=== PATIENT | female | born 1990 | race Caucasian/White ===

== ENCOUNTER 2018-05-03 20:53 | Emergency (ER) | payer OTHER ==
--- NOTE | 2018-05-03 21:45 | PDOC ---
Rapid Medical Evaluation Time Seen by Provider: 05/03/18 21:43 Medical Evaluation: Allergies Allergy/AdvReac Type Severity Reaction Status Date / Time codeine phosphate Allergy Swelling Verified 01/03/18 14:00 [From Codeine Phosphate Soluble] 05/03/18 21:43 I have performed a brief in-person evaluation of this patient. The patient presents with a chief complaint of:Body aches, sore throat and cough x 4 days. 6 months w/ no issues w/ w/ preg so far. No abd pain or vag bleed Pertinent physical exam findings:Stable and well devon I have ordered the following:flu swab sent The patient will proceed to the ED for further evaluation.
[2018-05-03 21:57] VITALS: BMI 45.2
[2018-05-03] MEDS ORDERED: ACETAMINOPHEN 500 MG TABLET (FP) PO ONE (22:50)
[2018-05-03] MEDS ORDERED: ACETAMINOPHEN 500 MG TABLET (FP) ONE (22:51)
--- NOTE | 2018-05-03 22:51 | PDOC ---
History of Present Illness - General Chief Complaint: Sore Throat Stated Complaint: THROAT CHILLS 6 MONTHS Time Seen by Provider: 05/03/18 21:43 - History of Present Illness Initial Comments: 05/03/18 22:48 23 week female presents for evaluation of cold-like symptoms without fever 4 days she has no comorbidities. Past History - Past Medical History Allergies/Adverse Reactions: Allergies Allergy/AdvReac Type Severity Reaction Status Date / Time codeine phosphate Allergy Swelling Verified 05/03/18 21:47 [From Codeine Phosphate Soluble] Home Medications: Ambulatory Orders NK [No Known Home Medication] 01/03/18 Anemia: No Asthma: No Cancer: No Cardiac Disorders: No CVA: No COPD: No CHF: No Dementia: No Diabetes: No GI Disorders: No Disorders: No HTN: No Hypercholesterolemia: No Liver Disease: No Seizures: No Thyroid Disease: No - Surgical History Abdominal Surgery: No Appendectomy: Yes (2006) Cardiac Surgery: No Cholecystectomy: No Lung Surgery: No Neurologic Surgery: No Orthopedic Surgery: Yes (RIGHT KNEE ARHTROSCOPY 2008) - Immunization History Immunization Up to Date: Yes - Suicide/Smoking/Psychosocial Hx Smoking Status: No Smoking History: Never smoked Have you smoked in the past 12 months: No Number of Cigarettes Smoked Daily: 0 Information on smoking cessation initiated: No Hx Alcohol Use: No Drug/Substance Use Hx: No Substance Use Type: None Hx Substance Use Treatment: No Review of Systems - Review of Systems Constitutional: No: Fever HEENTM: Yes: Nose Congestion *Physical Exam - Vital Signs Last Vital Signs Temp Pulse Resp BP Pulse Ox 99.9 F H 115 H 18 151/84 100 05/03/18 21:44 05/03/18 21:44 05/03/18 21:44 05/03/18 21:44 05/03/18 21:44 - Physical Exam Comments: 05/03/18 22:49 HEAD: NC/AT EYES: Conjuntiva clear Ears: Canals and TM's normal NOSE: No d/c THROAT: Moist mucous membrances, oral pharanx clear, uvula midline NECK: Supple without adenopathy CARDIAC: S1 S2 LUNGS: CTA Full and Equal breath sounds ABDOMEN: Soft NT ND MS: Full ROM in all joints without edema NEUROLOGIC: No gross sensory or motor deficits, NVID SKIN: Normal color and temperature no lesions or rashes Moderate Sedation - Procedure Monitoring Vital Signs: Procedure Monitoring Vital Signs Temperature 99.9 F H 05/03/18 21:44 Pulse Rate 115 H 05/03/18 21:44 Respiratory Rate 18 05/03/18 21:44 Blood Pressure 151/84 05/03/18 21:44 O2 Sat by Pulse Oximetry (%) 100 05/03/18 21:44 Medical Decision Making - Medical Decision Making 05/03/18 22:50 Patient will be sent to OB labor and delivered he for clearance *DC/Admit/Observation/Transfer Diagnosis at time of Disposition: Upper respiratory infection - Discharge Dispostion Disposition: HOME Condition at time of disposition: Stable Decision to Admit order: No - Referrals Referrals: Eamon Rebolledo [Primary Care Provider] - - Patient Instructions Printed Discharge Instructions: DI for Viral Upper Respiratory Infection -- Adult Additional Instructions: Follow-up with your ARTIST MANNEQUIN COLORING as well as her internal medicine doctor in 1-2 days for further evaluation and treatment options. The only medication he can take is Tylenol because of your . Return to the emergency room should symptoms worsen or go unresolved. - Post Discharge Activity
[2018-05-04 01:04] VITALS: BP 112/63; PULSE 101; TEMP 98.5
== END 2018-05-04 01:17 | disposition home or self-care (01) ==
LOC: JERFT 20:53 → JER 20:53
DX: O99.89 Other specified diseases and conditions complicating pregnancy, childbirth and the puerperium (principal); J06.9 Acute upper respiratory infection, unspecified; Z3A.23 23 weeks gestation of pregnancy
CPT/HCPCS: 87804; 99281-25

== ENCOUNTER 2018-08-10 11:33 | Inpatient (IN) | payer OTHER ==
--- NOTE | 2018-08-10 13:24 | HP ---
Past Medical History - Admission Chief Complaint: Leaking fluid History of Present Illness: 27 y/o female with SIUP at 37 weeks who came up for NST from [facility] office - was having BPP/monitoring due to chronic HTN/GDMA2. After ultrasound completed pt was complaining of feeling "wet." Pt evaluated using sterile speculum, + pooling and nitrizine positive on examination. Pt was prescribed insulin on Tuesday 08/08 for uncontrolled GDM, pt took her a.m. humulog today but hasn't taken any further insulin. Pt also with cHTN, preEclampsia labs have been checked several times, WNL. Pt asymptomatic from pre Eclampsia standpoint. GBS negative. HIV negative. Plan was for IOL at 38 weeks due to uncontrolled GDM, however due to PROM will start IOL. History Source: Patient, Medical Record Limitations to Obtaining History: No Limitations - Past Medical History Cardiovascular: No: HTN ...: 1 ...Para: 0 ...EDC by [facility]: 08/29/18 Infectious Disease: No: MRSA, STD's Psych: No: Bipolar, Depression - Past Surgical History Hx Myomectomy: No Hx Transabdominal Cerclage: No Additional Surgical History: appendectomy. orthopedic surgery - Smoking History Smoking history: Never smoked Have you smoked in the past 12 months: No Aproximately how many cigarettes per day: 0 - Alcohol/Substance Use Hx Alcohol Use: No History of Substance Use: reports: None - Social History Usual Living Arrangement: Yes: With Spouse History of Recent Travel: No Home Medications - Allergies Allergies/Adverse Reactions: Allergies Allergy/AdvReac Type Severity Reaction Status Date / Time codeine phosphate Allergy Swelling Verified 08/08/18 11:23 [From Codeine Phosphate Soluble] - Home Medications Home Medications: Ambulatory Orders Pnv No.95/Ferrous Fum/Folic AC [ Vitamin Tablet] 1 tab PO DAILY Physical Exam - Maternity Constitutional: Yes: Well Nourished, No Distress, Calm Eyes: Yes: Conjunctiva Clear, EOM Intact HENT: Yes: Atraumatic, Normocephalic Neck: Yes: Trachea Midline Cardiovascular: Yes: Regular Rate and Rhythm Lungs: Clear to auscultation - Abdominal Exam/OB Number of Fetuses: Single Presentation: Vertex Contractions: No Heart Rate (range): 155-160 Category: I Accelerations: Uniform Decelerations: None - Vaginal Exam/OB Speculum Exam: Yes (+pooling, + nitrizine) Dilatation (cm): 0 Effacement (%): 0 Amniotic Membrane Status: Ruptured Nitrazine Test: Positive Amniotic Fluid: Yes: Clear Presentation: Vertex/Position Station: -3 - Physical Exam Psychiatric: Yes: Alert, Oriented Hemorrhage Risk Assessment - Risk Factors Medium Risk Factors: Yes: None High Risk Factors: Yes: None Risk Score: 1 Risk Level: Medium Risk Imaging - Results Ultrasound: Report Reviewed Problem List - Problems (1) Term Code(s): Z34.90 - ENCNTR FOR SUPRVSN OF NORMAL , UNSP, UNSP TRIMESTER (2) Gestational diabetes mellitus (GDM) Code(s): O24.419 - GESTATIONAL DIABETES MELLITUS IN , UNSP CONTROL Qualifiers: Gestational diabetes mellitus control: insulin-controlled Trimester: third trimester Qualified Code(s): O24.414 - Gestational diabetes mellitus in , insulin controlled (3) Chronic hypertension affecting Code(s): O10.919 - UNSP PRE-EXISTING HTN COMP , UNSP TRIMESTER (4) Obesity affecting in third trimester Code(s): O99.213 - OBESITY COMPLICATING , THIRD TRIMESTER Assessment/Plan 27 y/o with SIUP at 37 weeks here with PROM, chronic HTN (BP currently controlled) and A2GDM here for cervidil IOL AFVSS NST reactive for cervidil BGMs Q2 hours will treat if BG > 120 GBS negative
[2018-08-10] MEDS ORDERED: PROMETHAZINE HCL 25 MG/1 ML VIAL IVPUSH ONE (13:37)
[2018-08-10] MEDS ORDERED: DINOPROSTONE 10 MG VAGINAL SUPPOSITORY VG ONE (13:43)
[2018-08-10] MEDS: LACTATED RINGERS SOLUTION 1,000 ML/1,000 ML INFUS.BAG IV SCH ×2 (14:30→18:36)
[2018-08-10 15:08] LABS: BASO % 0.4 % (0-2.0); EOS % 1.8 % (0-4.5); HEMOGLOBIN 12.5 GM/dL (10.7-15.3); LYMPH % 22.9 % (8-40); MCH 28.6 pg (25.7-33.7); MEAN CELL VOLUME 86.7 fl (80-96); MEAN PLT VOLUME 10.5 fl (7.5-11.1); MONO % 6.2 % (3.8-10.2); NEUT % 68.7 % (42.8-82.8); PLATELET COUNT 198 K/MM3 (134-434); RBC 4.38 M/mm3 (3.60-5.2); RDW 14.2 % (11.6-15.6); WHITE BLOOD COUNT 10.8 K/mm3 (4.0-10.0)
[2018-08-10 15:09] LABS: RETICULOCYTES 1.59 % (0.5-1.5)
[2018-08-10 15:11] LABS: CALCIUM 8.9 mg/dL (8.5-10.1); CREATININE 0.4 mg/dL (0.55-1.3); POTASSIUM 3.9 mmol/L (3.5-5.1); URIC ACID 5.6 mg/dL (2.6-7.2)
[2018-08-10 15:16] VITALS: BMI 50.9
[2018-08-10 15:21] LABS: INR 0.94 (0.83-1.09); PROTHROMBIN TIME (PATIENT) 11.1 SEC (9.7-13.0)
[2018-08-10 15:24] LABS: ACTIVATED PTT 29.7 SECONDS (25.2-36.5)
[2018-08-10 15:44] LABS: GAMMA GLUTAMYL TRANSPEPTIDASE 42 U/L (5-85); SGOT/AST 29 U/L (15-37); SGPT/ALT 36 U/L (13-61)
[2018-08-10 17:59] LABS: EPI CELLS 6.2 /HPF (0-5/HPF); HYALINE CASTS 7 /lpf (0-8); PH,URINE 5.5 (5.0-8.0); URINE APPEARANCE CLEAR; URINE BACTERIA 24.6 /hpf (NEGATIVE); URINE BILIRUBIN NEGATIVE (NEGATIVE); URINE COLOR YELLOW; URINE GLUCOSE (UA) NEGATIVE (NEGATIVE); URINE KETONE TRACE (NEGATIVE); URINE LEUK ESTERASE TRACE (NEGATIVE); URINE NITRITE NEGATIVE (NEGATIVE); URINE PROTEIN NEGATIVE (NEGATIVE); URINE RBC 2 /hpf (0-4); URINE WBC 2 /hpf (0-5)
[2018-08-10] MEDS ORDERED: ACETAMINOPHEN 325 MG TABLET (FP) ONE ×2 (19:39→22:10)
[2018-08-10] MEDS ORDERED: ACETAMINOPHEN 325 MG TABLET (FP) PO ONE (20:00)
[2018-08-10] MEDS ORDERED: BUTORPHANOL TARTRATE 1 MG/ML VIAL IVPB ONE (20:00)
[2018-08-10] MEDS ORDERED: TUBERCULIN PPD 5 TU/0.1ML SYRINGE (IN PATIENT USE ONLY) ID ONE (22:00)
[2018-08-10] MEDS: ACETAMINOPHEN 325 MG TABLET (FP) PO PRN (22:15)
[2018-08-10] MEDS ORDERED: PROMETHAZINE HCL 25 MG/1 ML VIAL ONE (23:05)
[2018-08-10] MEDS ORDERED: BUTORPHANOL TARTRATE 2 MG/ML VIAL ONE (23:05)
[2018-08-11] MEDS ORDERED: ACETAMINOPHEN 325 MG TABLET (FP) ONE (01:56)
[2018-08-11] MEDS: LACTATED RINGERS SOLUTION 1,000 ML/1,000 ML INFUS.BAG IV SCH ×2 (02:00→19:05)
[2018-08-11] MEDS: ACETAMINOPHEN 325 MG TABLET (FP) PO PRN (02:00)
[2018-08-11] MEDS ORDERED: TUBERCULIN PPD 5 TU/0.1ML SYRINGE (IN PATIENT USE ONLY) ID ONE (05:00)
[2018-08-11] MEDS ORDERED: AMPICILLIN SODIUM 2 GM VIAL ONE (05:41)
[2018-08-11] MEDS ORDERED: AMPICILLIN - 2 GM in SODIUM CHLORIDE 100 ML IVPB ONE (06:15)
[2018-08-11] MEDS ORDERED: OXYTOCIN 30 UNITS in 0.9% NS 30 UNIT/500 ML INFUS.BAG IVPB ONE (09:10)
--- NOTE | 2018-08-11 09:17 | PN ---
Ante-Partal Exam - Subjective Subjective: Pt feeling occasional cramps. Had pain overnight, received stadol/phenergan. Cervidil removed around 1230/1am. Vital Signs: Vital Signs Temperature 98.2 F 08/11/18 08:00 Pulse Rate 96 H 08/11/18 08:00 Respiratory Rate 20 08/11/18 08:00 Blood Pressure 109/74 08/11/18 08:00 O2 Sat by Pulse Oximetry (%) Bleeding: No Headache: No Visual changes: No Right upper quadrant pain: No - Contractions Contractions: Yes Regularity: Irregular Intensity: Mild - Exam during Labor Heart Rate: 155 Variability: Moderate Category: I Monitor Accelerations: Present Monitor Decelerations: None Exam: Vaginal Dilatation (cm): 1-2 Effacement (%): 0 Amniotic Membrane Status: Ruptured Presentation: Vertex Station: -3 - Assessment/Plan Assessment/Plan: Discussed options with pt declines another cervidil will start pitocin keep NPO
[2018-08-11] MEDS ORDERED: BUTORPHANOL TARTRATE 1 MG/ML VIAL IVPB ONE (09:25)
[2018-08-11] MEDS ORDERED: PROMETHAZINE HCL 25 MG/1 ML VIAL IVPUSH ONE (09:25)
[2018-08-11] MEDS ORDERED: OXYTOCIN 30 UNITS in 0.9% NS 30 UNIT/500 ML INFUS.BAG IVPB SCH (09:30)
[2018-08-11] MEDS ORDERED: AMPICILLIN SODIUM 1 GM VIAL ONE ×2 (09:42→12:07)
[2018-08-11] MEDS: AMPICILLIN - 1 GM in SODIUM CHLORIDE 100 ML IVPB SCH ×3 (10:00→19:05)
[2018-08-11] MEDS ORDERED: CITRIC ACID/SODIUM CITRATE 30 ML UNIT-DOSE CUP PO ONE (12:24)
--- NOTE | 2018-08-11 12:24 | PN ---
Ante-Partal Exam - Subjective Subjective: Pt with tachycardia Vital Signs: Vital Signs Temperature 98.6 F 08/11/18 09:00 Pulse Rate 88 08/11/18 10:00 Respiratory Rate 20 08/11/18 10:00 Blood Pressure 136/72 08/11/18 10:00 O2 Sat by Pulse Oximetry (%) Bleeding: No Headache: No Visual changes: No Right upper quadrant pain: No - Contractions Contractions: No Regularity: Irregular Monitor Mode: External - Exam during Labor Heart Rate: 160 Variability: Moderate Heart Rate Location: [facility] Category: II Monitor Accelerations: Present Monitor Decelerations: None Exam: Vaginal Dilatation (cm): 1 Effacement (%): 70 Amniotic Membrane Status: Intact Amniotic Fluid: Clear Presentation: Vertex Station: -3 - Intrapartum Hemorrhage Risk Risk Score: 1 Risk Level: Medium Risk - Assessment/Plan Assessment/Plan: intolerance to labor Prom at 37 weeks preexisting HTN GDMA2 remote from delivery Case discussed with patient and discussed with DC pitocin Plan Section Notify peds and anesthesia
[2018-08-11] MEDS ORDERED: morphine SULFATE/Preservative Free 0.5 MG/ML (1cc Syringe) ONE (14:09)
[2018-08-11] MEDS ORDERED: PROPOFOL 20 ML ONE (14:10)
[2018-08-11] MEDS ORDERED: OXYTOCIN 20 UNITS in 0.9% NS 20 UNIT/1,000 ML INFUS.BAG IV ONE (14:10)
[2018-08-11] MEDS ORDERED: SUCCINYLCHOLINE CHLORIDE 200 MG/10 ML VIAL ONE (14:10)
[2018-08-11] MEDS ORDERED: ePHEDrine SULFATE 50 MG/1 ML AMPULE ONE (14:12)
[2018-08-11] MEDS ORDERED: ceFAZolin SODIUM 1 GM VIAL ONE (15:01)
[2018-08-11] MEDS ORDERED: OXYTOCIN 10 UNITS/ML VIAL ONE (15:01)
[2018-08-11] MEDS ORDERED: ONDANSETRON 4 MG/2 ML VIAL IVPUSH PRN (15:32)
--- NOTE | 2018-08-11 15:32 | OP ---
Operative Note - Note: Operative Date: 08/11/18 Pre-Operative Diagnosis: intolence to labor. IUP at 37 week. PROM. Obesity. Gest DM A2. preexisting HTN Operation: primary low transverse Section Findings: Live female Post-Operative Diagnosis: Same as Pre-op Surgeon: Paty Washington Cable Splicer Helper: Vasyl Boggs Anesthesiologist/YARD GOODS SALESPERSON: Aislinn Sanon MD Anesthesia: Spinal Estimated Blood Loss (mls): 700 Operative Report Dictated: Yes
[2018-08-11] MEDS ORDERED: morphine SULFATE/Preservative Free 0.5 MG/ML (1cc Syringe) EP ONE (15:33)
[2018-08-11] MEDS ORDERED: LACTATED RINGERS SOLUTION 1,000 ML IV SCH (15:45)
[2018-08-11 16:10] LABS: VENOUS PC02 67.4 mmHg (41-51)
[2018-08-11 16:12] LABS: VENOUS PO2 18.1 mmHg (30-40)
[2018-08-11 16:14] LABS: VENOUS PH 7.11 (7.31-7.41)
--- NOTE | 2018-08-11 16:37 | SURG ---
Surgery Process Control Tech Note Process Control Tech: Vasyl Boggs PA-C (Suzy) Date of Service: 08/11/18 Diagnosis: intolence to labor. IUP at 37 week. PROM. Obesity. Gest DM A2. preexisting HTN Procedure: primary low transverse Section I was present for the entirety of the operative procedure. For further detail, please refer to operative report. Visit type - Case Type Case Type: ED Admission - Emergency Emergency Visit: Yes ED Registration Date: 08/10/18 Care time: The patient presented to the Emergency Department on the above date and was hospitalized for further evaluation of their emergent condition. - New patient This patient is new to me today: No - Critical Care Critical Care patient: No
[2018-08-11] MEDS: OXYTOCIN 20 UNITS in 0.9% NS 20 UNIT/1,000 ML INFUS.BAG IV SCH (17:15)
[2018-08-11] MEDS ORDERED: IBUPROFEN 800 MG/8 ML IJ IVPB PRN (21:07)
[2018-08-12] MEDS: OXYTOCIN 20 UNITS in 0.9% NS 20 UNIT/1,000 ML INFUS.BAG IV SCH ×2 (02:11→10:48)
[2018-08-12] MEDS: ACETAMINOPHEN 325 MG TABLET (FP) PO PRN ×4 (06:12→22:25)
[2018-08-12] MEDS: IBUPROFEN 600 MG TABLET (FP) PO PRN ×4 (06:13→22:26)
--- NOTE | 2018-08-12 08:41 | OP ---
DATE OF OPERATION: 08/11/2018 PREOPERATIVE DIAGNOSIS: intolerance to labor, also obesity in the 3rd trimester, pre-existing hypertension, gestational diabetes in , intrauterine at 37 weeks, and premature rupture of membranes. DESCRIPTION OF PROCEDURE: Patient was taken to the operating room, placed in supine position, prepped and draped in the usual sterile fashion. Time-out was performed in accordance with hospital regulation. Pfannenstiel skin incision was made with a scalpel. Cautery was then used to cut through the layers of abdominal wall to the level of the fascia. Fascia was cut in the midline, and cautery was then used to open the fascia in smiling fashion. Kochers were then used to bluntly and sharply dissect the rectus muscle off the fascia. Muscle was split in the midline. Peritoneal cavity was then entered, carried up and downward. Bladder retractor was then placed. Vesicouterine reflection was then entered. The bladder was bluntly dissected out of the operative field. Scalpel was then used to make a low transverse uterine incision. Incision was carried upward using bandage scissors. A live female infant was delivered in OT position. Nose and mouth suction performed. Shoulders were delivered without difficulty. Cord was clamped and cut. Cord blood obtained. Placenta was manually extracted from the uterus. Cord pH obtained. Infant was handed to analog ic design engineer after cord was clamped and cut. Uterus was exteriorized and cleaned with clean lap pads. Uterine incision then closed using 0 Biosyn suture 1st layer continuous and locking, 2nd layer imbricating the 1st layer. Hemostasis was achieved. Tubes and ovaries were noted to be normal. Uterus interiorized. Abdominal cavity cleaned with clean lap pads. Abdominal sweep done. Peritoneal cavity was then closed using 0 Vicryl in continuous fashion. Fascia was then closed in 2 parts using 0 Vicryl in continuous fashion. Subcutaneous was closed in layers using 0 Biosyn suture in 2 layers. The skin was then closed using 3-0 Vicryl in subcuticular fashion. Wound was washed and dressed. The patient tolerated procedure well. Estimated blood loss: 700 mL. Kee [id number]
[2018-08-12] MEDS: PRENATAL VITAMINS W/ FOLIC ACID TABLET (FP) PO SCH (09:44)
--- NOTE | 2018-08-12 11:01 | PN ---
Post Note - Post Date of Delivery: 08/11/18 Vital Signs: Vital Signs - 24 hr 08/11/18 08/11/18 08/11/18 12:00 13:00 14:00 Temperature 98.6 F 98.6 F Pulse Rate 86 88 87 Respiratory 20 20 20 Rate Blood Pressure 126/78 129/67 132/76 O2 Sat by Pulse Oximetry (%) 08/11/18 08/11/18 08/11/18 14:06 15:30 15:45 Temperature 98.4 F 98.2 F Pulse Rate 87 90 Respiratory 16 16 Rate Blood Pressure 130/70 118/76 O2 Sat by Pulse 100 100 Oximetry (%) 08/11/18 08/11/18 08/11/18 16:00 16:15 16:30 Temperature Pulse Rate 77 84 84 Respiratory 16 16 16 Rate Blood Pressure 121/71 119/67 120/68 O2 Sat by Pulse 98 98 100 Oximetry (%) 08/11/18 08/11/18 08/11/18 17:15 18:00 19:00 Temperature 99 F Pulse Rate 93 H Respiratory 18 18 18 Rate Blood Pressure 134/77 O2 Sat by Pulse Oximetry (%) 08/11/18 08/11/18 08/11/18 20:00 21:00 22:00 Temperature 98.8 F Pulse Rate 95 H Respiratory 18 18 18 Rate Blood Pressure 127/83 O2 Sat by Pulse Oximetry (%) 08/11/18 08/12/18 08/12/18 23:00 00:00 01:00 Temperature Pulse Rate Respiratory 18 18 18 Rate Blood Pressure O2 Sat by Pulse Oximetry (%) 08/12/18 08/12/18 08/12/18 02:00 03:00 04:00 Temperature 98.4 F Pulse Rate 82 Respiratory 18 18 18 Rate Blood Pressure 113/63 O2 Sat by Pulse Oximetry (%) 08/12/18 08/12/18 08/12/18 05:00 06:00 08:59 Temperature 98.6 F 98.3 F Pulse Rate 87 85 Respiratory 18 18 20 Rate Blood Pressure 115/62 134/74 O2 Sat by Pulse Oximetry (%) Labs: Laboratory Results - last 24 hr 08/11/18 08/11/18 08/11/18 12:24 15:00 15:00 Anticoagulation Therapy Cancelled Puncture Site Cancelled Patient Temperature Cancelled ABG pH Cancelled ABG pCO2 at Pt Temp Cancelled ABG pO2 at Pt Temp Cancelled ABG HCO3 Cancelled ABG O2 Sat (Measured) Cancelled ABG O2 Content Cancelled ABG Base Excess Cancelled Mason Test Cancelled VBG pH 7.11 L* POC VBG pCO2 67.4 H POC VBG pO2 18.1 L VBG HCO3 20.4 L VBG O2 Sat (Micah) 19.6 L VBG Base Excess -10.8 L O2 Delivery Device Cancelled Oxygen Flow Rate Cancelled Vent Mode Cancelled Vent Rate Cancelled Mechanical Rate Cancelled PEEP Cancelled Pressure Support Vent Cancelled POC Glucometer 91 08/11/18 08/12/18 08/12/18 17:55 06:17 09:46 Anticoagulation Therapy Puncture Site Patient Temperature ABG pH ABG pCO2 at Pt Temp ABG pO2 at Pt Temp ABG HCO3 ABG O2 Sat (Measured) ABG O2 Content ABG Base Excess Mason Test VBG pH POC VBG pCO2 POC VBG pO2 VBG HCO3 VBG O2 Sat (Micah) VBG Base Excess O2 Delivery Device Oxygen Flow Rate Vent Mode Vent Rate Mechanical Rate PEEP Pressure Support Vent POC Glucometer 86 70 77 - Subjective Subjective: No Complaints, No Nausea or vomiting - Objective Afebrile: Yes Breast: Not engorged Abdomen: Soft, Non-tender Uterus: Fundus firm Vagina: Scant lochia Extremities: Non-tender - Assessment/Plan (1) History of low transverse section Assessment: Other (POD1) Plan: Routine Care
[2018-08-12] MEDS: diphenhydrAMINE HCL 25 MG CAPSULE (FP) PO PRN (22:27)
--- NOTE | 2018-08-13 06:33 | PN ---
Progress Note (SOAP) - Subjective Chief Complaint: Pt doing well - Current Medications Current Medications: Active Medications Acetaminophen (Tylenol -) 650 mg PO Q4H PRN PRN Reason: PAIN Last Admin: 08/12/18 22:25 Dose: 650 mg Diphenhydramine HCl (Benadryl Injection -) 25 mg IVPUSH Q4H PRN PRN Reason: Pruritis Last Admin: 08/12/18 13:49 Dose: 25 mg Diphenhydramine HCl (Benadryl -) 25 mg PO Q6H PRN PRN Reason: ITCHING Last Admin: 08/12/18 22:27 Dose: 25 mg Ibuprofen (Motrin -) 600 mg PO Q4H PRN PRN Reason: PAIN LEVEL 4 - 6 Last Admin: 08/12/18 22:26 Dose: 600 mg Ibuprofen (Caldolor Injection -) 600 mg IVPB Q8H PRN PRN Reason: FEVER Last Admin: 08/11/18 22:15 Dose: 600 mg Ondansetron HCl (Zofran Injection) 4 mg IVPUSH Q6H PRN PRN Reason: NAUSEA AND/OR VOMITING Multivit/Folic Acid/Iron ( Vitamins (Sjr) -) 1 tab PO DAILY TEDDY Last Admin: 08/12/18 09:44 Dose: 1 tab - Objective Vital Signs: Vital Signs Temperature 98.2 F 08/13/18 06:00 Pulse Rate 80 08/13/18 06:00 Respiratory Rate 18 08/13/18 06:00 Blood Pressure 128/72 08/13/18 06:00 O2 Sat by Pulse Oximetry (%) 100 08/12/18 09:00 Constitutional: Yes: Well Nourished, No Distress Gastrointestinal: Yes: WNL ....Post : Yes: Uterus firm, Uterus non-tender Breast(s): Yes: WNL Musculoskeletal: Yes: WNL Edema: Yes Edema: LLE: 1+, RLE: 1+ Wound/Incision: Yes: Clean/Dry, Well Approximated, Steri Strips Labs Lab Results: CBC, BMP 08/10/18 14:25 08/10/18 14:25 Problem List - Problems (1) History of low transverse section Code(s): Z98.891 - HISTORY OF UTERINE SCAR FROM PREVIOUS SURGERY (2) Obesity complicating in third trimester Code(s): O99.213 - OBESITY COMPLICATING , THIRD TRIMESTER (3) Obesity Code(s): E66.9 - OBESITY, UNSPECIFIED Assessment/Plan POD 2 obesity Plan OOB continue present management
[2018-08-13] MEDS: ACETAMINOPHEN 325 MG TABLET (FP) PO PRN ×4 (06:35→21:50)
[2018-08-13] MEDS: IBUPROFEN 600 MG TABLET (FP) PO PRN ×4 (06:36→21:51)
[2018-08-13] MEDS: PRENATAL VITAMINS W/ FOLIC ACID TABLET (FP) PO SCH (09:09)
[2018-08-13] MEDS: diphenhydrAMINE HCL 25 MG CAPSULE (FP) PO PRN ×2 (09:09→21:57)
[2018-08-14] MEDS: ACETAMINOPHEN 325 MG TABLET (FP) PO PRN ×4 (06:04→21:49)
[2018-08-14] MEDS: IBUPROFEN 600 MG TABLET (FP) PO PRN ×4 (06:05→21:49)
--- NOTE | 2018-08-14 08:06 | PN ---
Progress Note (SOAP) - Current Medications Current Medications: Active Medications Acetaminophen (Tylenol -) 650 mg PO Q4H PRN PRN Reason: PAIN Last Admin: 08/14/18 06:04 Dose: 650 mg Diphenhydramine HCl (Benadryl Injection -) 25 mg IVPUSH Q4H PRN PRN Reason: Pruritis Last Admin: 08/12/18 13:49 Dose: 25 mg Diphenhydramine HCl (Benadryl -) 25 mg PO Q6H PRN PRN Reason: ITCHING Last Admin: 08/13/18 21:57 Dose: 25 mg Ibuprofen (Motrin -) 600 mg PO Q4H PRN PRN Reason: PAIN LEVEL 4 - 6 Last Admin: 08/14/18 06:05 Dose: 600 mg Ibuprofen (Caldolor Injection -) 600 mg IVPB Q8H PRN PRN Reason: FEVER Last Admin: 08/11/18 22:15 Dose: 600 mg Ondansetron HCl (Zofran Injection) 4 mg IVPUSH Q6H PRN PRN Reason: NAUSEA AND/OR VOMITING Multivit/Folic Acid/Iron ( Vitamins (Sjr) -) 1 tab PO DAILY TEDDY Last Admin: 08/13/18 09:09 Dose: 1 tab - Objective Vital Signs: Vital Signs Temperature 98.2 F 08/13/18 22:00 Pulse Rate 91 H 08/13/18 22:00 Respiratory Rate 18 08/13/18 22:00 Blood Pressure 140/81 08/13/18 22:00 O2 Sat by Pulse Oximetry (%) 100 08/12/18 09:00 Constitutional: Yes: Well Nourished Cardiovascular: Yes: WNL Respiratory: Yes: WNL Gastrointestinal: Yes: WNL ....Post : Yes: Uterus firm, Uterus non-tender Breast(s): Yes: WNL Musculoskeletal: Yes: WNL Extremities: Yes: WNL Wound/Incision: Yes: Clean/Dry, Well Approximated, Steri Strips, Open to air Neurological: Yes: WNL, Alert, Oriented Labs Lab Results: CBC, BMP 08/10/18 14:25 08/10/18 14:25 Problem List - Problems (1) History of low transverse section Code(s): Z98.891 - HISTORY OF UTERINE SCAR FROM PREVIOUS SURGERY (2) Obesity complicating in third trimester Code(s): O99.213 - OBESITY COMPLICATING , THIRD TRIMESTER (3) Obesity Code(s): E66.9 - OBESITY, UNSPECIFIED Assessment/Plan POD 3 obesity Plan OOB continue present management
[2018-08-14] MEDS: PRENATAL VITAMINS W/ FOLIC ACID TABLET (FP) PO SCH (09:57)
[2018-08-14] MEDS: diphenhydrAMINE HCL 25 MG CAPSULE (FP) PO PRN (21:50)
[2018-08-15] MEDS: ACETAMINOPHEN 325 MG TABLET (FP) PO PRN ×2 (06:55→11:52)
[2018-08-15] MEDS: IBUPROFEN 600 MG TABLET (FP) PO PRN ×2 (06:56→11:51)
[2018-08-15 08:24] VITALS: BP 138/91; PULSE 78; TEMP 97.9
[2018-08-15 12:36] LABS: BASO % 1.2 % (0-2.0); EOS % 5.4 % (0-4.5); HEMATOCRIT 30.6 % (32.4-45.2); HEMOGLOBIN 10.2 GM/dL (10.7-15.3); LYMPH % 30.6 % (8-40); MCH 28.8 pg (25.7-33.7); MCHC 33.3 g/dl (32.0-36.0); MEAN CELL VOLUME 86.6 fl (80-96); MEAN PLT VOLUME 9.4 fl (7.5-11.1); MONO % 5.1 % (3.8-10.2); NEUT % 57.7 % (42.8-82.8); PLATELET COUNT 245 K/MM3 (134-434); RBC 3.54 M/mm3 (3.60-5.2); RDW 14.4 % (11.6-15.6); WHITE BLOOD COUNT 10.5 K/mm3 (4.0-10.0)
--- NOTE | 2018-08-15 13:06 | DS ---
Physical Exam-HEALTH SYSTEMS ANALYST Vital Signs: Vital Signs Temperature 97.9 F 08/15/18 08:00 Pulse Rate 78 08/15/18 08:00 Respiratory Rate 20 08/15/18 08:00 Blood Pressure 138/91 08/15/18 08:00 O2 Sat by Pulse Oximetry (%) 100 08/12/18 09:00 Labs: CBC, BMP 08/15/18 12:20 08/10/18 14:25 Delivery - Delivery Type of Anesthesia: Spinal Episiotomy/Laceration: None EBL (cc): 600 Delivery, Single - Stages of Labor Date 1st Stage Initiatied: 08/10/18 Time 1st Stage Initiated: 23:00 Date of Delivery: 08/11/18 Time of Delivery: 14:47 Time Placenta Delivered: 14:48 - Condition of Metal Bonding Assembler/Systems Architecture Analyst Present: Yes Name: Mae Heart Gender: Female Weight: 8 lb 4 oz Position: OT Total Hours ROM (Hrs/Mins): 26HRS-12 MINS - 1 Minute Total Score: 8 5 Minutes Total Score: 9 - Peyton Feeding Plan Initial Plan: Elected not to breastfeed exclusively throughout hospitalization Discharge Summary Reason For Visit: INDUCTION OF LABOR Current Active Problems Chronic hypertension affecting (Acute) Gestational diabetes mellitus (GDM) (Acute) History of low transverse section (Acute) Obesity (Acute) Obesity affecting in third trimester (Acute) Obesity complicating in third trimester (Acute) Term (Acute) Hospital Course: Pt admitted on 08/10 for IOL 2/2 PROM, GDM and chronic HTN. Had cervidil placed on 08/10, pitocin started 08/11 but then there was subsequent tachycardia. THe patient then underwent a primary LTCS and had an uncomplicated post recovery. She was discharged home on post op day 4. Condition: Good - Instructions Diet, Activity, Other Instructions: Physical activity Resume your normal everyday activity as tolerated no heavy lifting or exercise until seen by your surgeon. You may walk unlimited erum of and climb stairs. You may resume driving the car when you feel safe and comfortable behind the wheel. No sexual activity as instructed. Wound care If you have a bandage, leave it on, and keep dry for 48-72 hours. After that time discard the outer bandage. If they are tapes on the skin under the out of bandage leave them in place. They will peel off in the next 7 to 10 days. Do Not Peel them off. You may shower the day after surgery. If there are tapes present on the skin, you may shower over them. Diet There are no dietary restrictions. Eat healthy, high-fiber foods. Drink 6 to 8 glasses of liquid each day. This will assist in keeping your bowels are regular. Pain management You may take Tylenol or acetaminophen or Ibuprofen (for example, Motrin, Advil etc.) from my pain prescription medication is ordered should be taken as prescribed for moderate to severe pain. Call MD for any of the following: Severe pain not relieved by medication Fever of 101 or higher Excessive bleeding or drainage on dressing Inability to urinate Referrals: Leslee Hsu DO [Staff Physician] - Disposition: HOME - Home Medications Comprehensive Discharge Medication List: Ambulatory Orders Pnv No.95/Ferrous Fum/Folic AC [ Vitamin Tablet] 1 tab PO DAILY Insulin Lispro [Humalog] 44 unit SQ ONCE 08/10/18 Ibuprofen [Motrin -] 600 mg PO QID #28 tablet 08/11/18
[2018-08-15] MEDS: PRENATAL VITAMINS W/ FOLIC ACID TABLET (FP) PO SCH (13:31)
--- NOTE | 2018-08-17 15:18 | PATH ---
Surgical Pathology Report Patient Name: JANELL LUI Med. Rec. #: [id number] /Age/Gender: 1990 (Age: 27) / F Account: [id number] Location: [facility] OBS/CONSUMER SAFETY OFFICER Taken: 08/10/2018 Received: 08/14/2018 Reported: 08/17/2018 Physicians: Kee Jay M.D. Specimen(s) Received PLACENTA Clinical History 37.6 weeks gestation, PROM, obesity, gestational diabetes on insulin Primary Final Diagnosis PLACENTA, PRIMARY : MATURE THIRD TRIMESTER PLACENTA (WEIGHT: 736 GRAMS) SHOWING SMALL PLACENTAL INFARCT (1.6 CM). MILD ACUTE CHORIOAMNIONITIS. TRIVESSEL UMBILICAL CORD. Electronically Signed Rosemary Garcia M.D. Gross Description The specimen is received fresh labeled placenta and is a 736 gram 21 x 17.5 x 3.5 cm. placenta with attached membranes and umbilical cord. The attached membranes appear translucent and inserted marginally. The umbilical cord is separate from the placental disc and measures 35 cm. in length and averages 1.5 cm. in diameter. No true knots or strictures are identified. Cut surface of the umbilical cord reveals 3 vessels. The surface is alexander-blue with minimal fibrin deposition and appropriate caliber vessels. The maternal surface is red-brown and appears disrupted with focal defects. Sectioning reveals red-brown, spongy parenchyma with a focal area of white, fibrosis measuring 1.6 x 1.0 x 0.5 cm. Sewage Reticulation Drafting Officer sections are submitted in three cassettes as follows: 1- membrane rolls and umbilical cord; 2-3- placental disc with fibrous area in #2. AE/08/14/2018 ebram/08/14/2018
== END 2018-08-15 13:30 | disposition home or self-care (01) | DRG 540 ==
LOC: JDEL 11:33 → JLDR 13:15 → J3W 08-11 17:15
PROVIDERS: ADMIT Obstetrics & Gynecology; ATTEND Obstetrics & Gynecology
PROC: 3E0P7VZ Introduction of Hormone into Female Reproductive, Via Natural or Artificial Opening (ICD-10-PCS; 2018-08-10)
PROC: 10D00Z1 Extraction of Products of Conception, Low, Open Approach (ICD-10-PCS; principal; 2018-08-11)
DX: O24.424 Gestational diabetes mellitus in childbirth, insulin controlled (principal); O16.4 Unspecified maternal hypertension, complicating childbirth; O42.92 Full-term premature rupture of membranes, unspecified as to length of time between rupture and onset of labor; O77.8 Labor and delivery complicated by other evidence of fetal stress; O99.213 Obesity complicating pregnancy, third trimester; Z3A.37 37 weeks gestation of pregnancy; Z37.0 Single live birth
CPT/HCPCS: 36415; 80048; 81003; 82803; 82962; 82977; 83010; 84450; 84460; 84550; 85025; 85032; 85044; 85610; 85730; 86593; 86850; 86900; 86901; 88307-TC; 94010

== ENCOUNTER 2021-03-25 11:11 | Emergency (ER) | payer OTHER ==
[2021-03-25 13:15] VITALS: BP 138/84; PULSE 111; TEMP 98; BMI 46.5
[2021-03-25] MEDS ORDERED: ACETAMINOPHEN 1000 MG/100 ML BAG IVPB ONE (14:05)
[2021-03-25] MEDS ORDERED: ONDANSETRON 4 MG/2 ML VIAL IVPUSH ONE (14:05)
[2021-03-25] MEDS ORDERED: SODIUM CHLORIDE 0.9% 500 ML INFUS.BAG IV ONE (14:05)
[2021-03-25] MEDS ORDERED: ACETAMINOPHEN INJECTION 100 ML IVPB ONE (14:17)
[2021-03-25] MEDS ORDERED: ONDANSETRON 4 MG/2 ML VIAL ONE (14:17)
[2021-03-25 15:01] LABS: BASO % 0.5 % (0-2.0); HEMATOCRIT 36.3 % (32.4-45.2); HEMOGLOBIN 12.1 GM/dL (10.7-15.3); LYMPH % 8.9 % (8-40); MCH 26.8 pg (25.7-33.7); MCHC 33.4 g/dl (32.0-36.0); MEAN CELL VOLUME 80.2 fl (80-96); MEAN PLT VOLUME 9.4 fl (7.5-11.1); MONO % 6.4 % (3.8-10.2); NEUT % 83.2 % (42.8-82.8); PLATELET COUNT 248 10^3/uL (134-434); RBC 4.52 M/mm3 (3.60-5.2); RDW 15.6 % (11.6-15.6); WHITE BLOOD COUNT 9.2 K/mm3 (4.0-10.0)
[2021-03-25 15:21] LABS: ALBUMIN 3.5 g/dl (3.4-5.0); BLOOD UREA NITROGEN 3.3 mg/dL (7-18)
[2021-03-25 15:24] LABS: CREATININE 0.4 mg/dL (0.55-1.3)
[2021-03-25 15:25] LABS: BILIRUBIN,TOTAL 0.5 mg/dL (0.2-1)
[2021-03-25 15:26] LABS: TOT PROT 7.6 g/dl (6.4-8.2)
[2021-03-26 20:07] LABS: SARS-CoV-2 NAA Detected (Not Detected)
== END 2021-03-25 17:06 | disposition home or self-care (01) ==
LOC: JER 11:11
PROC: 3E0333Z Introduction of Anti-inflammatory into Peripheral Vein, Percutaneous Approach (ICD-10-PCS; principal; 2021-03-25)
PROC: 3E033GC Introduction of Other Therapeutic Substance into Peripheral Vein, Percutaneous Approach (ICD-10-PCS; 2021-03-25)
DX: R51.9 Headache, unspecified (principal); J02.9 Acute pharyngitis, unspecified; M79.10 Myalgia, unspecified site
CPT/HCPCS: 36415; 80053; 85025; 87804; 99284-25; C9803-CS; U0003; U0005

== ENCOUNTER 2022-11-15 12:44 | Inpatient (IN) | payer OTHER ==
[2022-11-15 12:55] VITALS: BMI 44.2
[2022-11-15] MEDS ORDERED: ACETAMINOPHEN 500 MG TABLET (FP) PO ONE (14:07)
[2022-11-15] MEDS ORDERED: ACETAMINOPHEN 500 MG TABLET (FP) ONE (14:47)
[2022-11-15 15:17] LABS: BASO % 0.7 % (0-2.0); EOS % 1.4 % (0-4.5); HEMATOCRIT 37.8 % (32.4-45.2); HEMOGLOBIN 11.6 GM/dL (10.7-15.3); LYMPH % 26.7 % (8-40); MCH 24.6 pg (25.7-33.7); MCHC 30.8 g/dl (32.0-36.0); MEAN CELL VOLUME 79.9 fl (80-96); MONO % 4.9 % (3.8-10.2); NEUT % 66.3 % (42.8-82.8); PLATELET COUNT 291 10^3/uL (134-434); RBC 4.73 M/mm3 (3.60-5.2); RDW 16.7 % (11.6-15.6); WHITE BLOOD COUNT 12.7 K/mm3 (4.0-10.0)
[2022-11-15 15:18] LABS: PH,URINE 6.5 (5.0-8.0); URINE APPEARANCE CLEAR; URINE BILIRUBIN NEGATIVE (NEGATIVE); URINE COLOR YELLOW; URINE GLUCOSE (UA) NEGATIVE (NEGATIVE); URINE KETONE TRACE (NEGATIVE); URINE LEUK ESTERASE NEGATIVE (NEGATIVE); URINE NITRITE NEGATIVE (NEGATIVE); URINE PROTEIN NEGATIVE (NEGATIVE)
[2022-11-15 15:24] LABS: INR 1.1 (0.83-1.09); PROTHROMBIN TIME (PATIENT) 12.8 SEC (9.7-13.0)
[2022-11-15 15:27] LABS: POTASSIUM 3.9 mmol/L (3.5-5.1)
[2022-11-15 15:29] LABS: ALBUMIN 3.9 g/dl (3.4-5.0); CALCIUM 9.2 mg/dL (8.5-10.1)
[2022-11-15 15:30] LABS: BLOOD UREA NITROGEN 8.8 mg/dL (7-18)
[2022-11-15 15:32] LABS: CREATININE 0.5 mg/dL (0.55-1.3)
[2022-11-15 15:34] LABS: BILIRUBIN,TOTAL 0.6 mg/dL (0.2-1); TOT PROT 7.8 g/dl (6.4-8.2)
[2022-11-15] MEDS ORDERED: KETOROLAC TROMETHAMINE 30 MG/1 ML VIAL IM ONE (15:38)
[2022-11-15] MEDS ORDERED: KETOROLAC TROMETHAMINE 15 MG/ML VIAL IVPUSH ONE (17:08)
[2022-11-15] MEDS ORDERED: KETOROLAC TROMETHAMINE 15 MG/ML VIAL ONE (17:18)
[2022-11-15] MEDS ORDERED: CEFTRIAXONE 2,000 MG in DEXTROSE 5%-WATER - 50 ML IVPB ONE (19:03)
[2022-11-15] MEDS ORDERED: metroNIDAZOLE 500 MG TABLET PO ONE (19:04)
[2022-11-15] MEDS ORDERED: ONDANSETRON 4 MG/2 ML VIAL IVPUSH ONE (19:47)
[2022-11-15] MEDS ORDERED: DOCUSATE SODIUM 100 MG CAPSULE (FP) PO PRN (20:00)
[2022-11-15] MEDS ORDERED: CEFTRIAXONE 2 GM/100 ML BAG IVPB ONE (20:57)
[2022-11-15] MEDS ORDERED: ONDANSETRON 4 MG/2 ML VIAL ONE (20:57)
[2022-11-15] MEDS ORDERED: metroNIDAZOLE 250 MG TABLET ONE (20:58)
[2022-11-15] MEDS ORDERED: ACETAMINOPHEN 1000 MG/100 ML BAG IVPB PRN (21:00)
[2022-11-15] MEDS: SODIUM CHLORIDE 1,000 ML IV SCH (21:06)
[2022-11-15] MEDS ORDERED: ACETAMINOPHEN INJECTION 100 ML IVPB ONE (21:12)
[2022-11-15 21:21] VITALS: RESP 18
[2022-11-16 10:19] LABS: BASO % 0.4 % (0-2.0); EOS % 2.4 % (0-4.5); HEMATOCRIT 33.6 % (32.4-45.2); LYMPH % 33.9 % (8-40); MCH 25.4 pg (25.7-33.7); MCHC 32.7 g/dl (32.0-36.0); MEAN CELL VOLUME 77.8 fl (80-96); MEAN PLT VOLUME 9.4 fl (7.5-11.1); MONO % 6.4 % (3.8-10.2); NEUT % 56.9 % (42.8-82.8); PLATELET COUNT 250 10^3/uL (134-434); RBC 4.32 M/mm3 (3.60-5.2); RDW 16.4 % (11.6-15.6); WHITE BLOOD COUNT 8.6 K/mm3 (4.0-10.0)
[2022-11-16 11:07] LABS: POTASSIUM 3.9 mmol/L (3.5-5.1)
[2022-11-16] MEDS ORDERED: ACETAMINOPHEN 325 MG TABLET (FP) PO ONE (11:30)
[2022-11-16 11:45] LABS: CALCIUM 8.8 mg/dL (8.5-10.1); MAGNESIUM 2.1 mg/dL (1.8-2.4)
[2022-11-16 11:46] LABS: BLOOD UREA NITROGEN 9.9 mg/dL (7-18)
[2022-11-16 11:48] LABS: CREATININE 0.5 mg/dL (0.55-1.3); PHOSPHOROUS 3.4 mg/dL (2.5-4.9)
[2022-11-16] MEDS ORDERED: CEFTRIAXONE 1 GM in DEXTROSE 5%-WATER - 50 ML IVPB SCH (14:00)
[2022-11-16] MEDS: PIPERACILLIN/TAZOB 3.375 GM 3.375 GM in DEXTROSE 5%-WATER - 50 ML IVPB SCH (17:47)
[2022-11-16] MEDS: ACETAMINOPHEN 325 MG TABLET (FP) PO PRN (21:29)
[2022-11-16] MEDS: ONDANSETRON 4 MG/2 ML VIAL IVPUSH PRN (21:29)
[2022-11-16] MEDS: SODIUM CHLORIDE 1,000 ML IV SCH (23:44)
[2022-11-17] MEDS: PIPERACILLIN/TAZOB 3.375 GM 3.375 GM in DEXTROSE 5%-WATER - 50 ML IVPB SCH ×3 (01:31→17:12)
[2022-11-17] MEDS: SODIUM CHLORIDE 0.45%/POT 20 MEQ/1,000 ML INFUS.BAG IV SCH ×2 (08:59→22:59)
[2022-11-17] MEDS: ONDANSETRON 4 MG/2 ML VIAL IVPUSH PRN (09:00)
[2022-11-17] MEDS: ACETAMINOPHEN 325 MG TABLET (FP) PO PRN (17:16)
[2022-11-17] MEDS ORDERED: ACETAMINOPHEN 1000 MG/100 ML BAG IVPB PRN (22:25)
[2022-11-18] MEDS: PIPERACILLIN/TAZOB 3.375 GM 3.375 GM in DEXTROSE 5%-WATER - 50 ML IVPB SCH ×2 (01:18→09:43)
[2022-11-18] MEDS: SODIUM CHLORIDE 0.45%/POT 20 MEQ/1,000 ML INFUS.BAG IV SCH (09:47)
[2022-11-18 10:18] LABS: BASO % 0.4 % (0-2.0); EOS % 3.4 % (0-4.5); HEMOGLOBIN 11.3 GM/dL (10.7-15.3); LYMPH % 34.2 % (8-40); MCH 25.5 pg (25.7-33.7); MCHC 33.1 g/dl (32.0-36.0); MEAN PLT VOLUME 9.5 fl (7.5-11.1); MONO % 6.6 % (3.8-10.2); NEUT % 55.4 % (42.8-82.8); PLATELET COUNT 258 10^3/uL (134-434); RBC 4.42 M/mm3 (3.60-5.2); RDW 15.9 % (11.6-15.6); WHITE BLOOD COUNT 7.2 K/mm3 (4.0-10.0)
[2022-11-18 10:35] LABS: POTASSIUM 4.1 mmol/L (3.5-5.1)
[2022-11-18 10:42] LABS: ALBUMIN 3.4 g/dl (3.4-5.0); BLOOD UREA NITROGEN 5.9 mg/dL (7-18); CREATININE 0.5 mg/dL (0.55-1.3)
[2022-11-18 10:44] LABS: BILIRUBIN,TOTAL 0.8 mg/dL (0.2-1); CALCIUM 8.7 mg/dL (8.5-10.1); TOT PROT 6.7 g/dl (6.4-8.2)
[2022-11-18 13:39] VITALS: BP 145/73; PULSE 87; TEMP 98.3
== END 2022-11-18 18:12 | disposition home or self-care (01) | DRG 244 ==
LOC: JER 12:44 → JERBED 20:21 → J6S 23:26
PROVIDERS: ADMIT Internal Medicine; ATTEND Family Medicine
DX: K57.32 Diverticulitis of large intestine without perforation or abscess without bleeding (principal); C53.9 Malignant neoplasm of cervix uteri, unspecified; K43.9 Ventral hernia without obstruction or gangrene; N83.201 Unspecified ovarian cyst, right side; E66.01 Morbid (severe) obesity due to excess calories; Z68.41 Body mass index [BMI] 40.0-44.9, adult
CPT/HCPCS: 36415; 74177-TC; 76830-TC; 80048; 80053; 81003; 83605; 83735; 84100; 84703; 85025; 85610; 85730; 86140; 86850; 86900; 86901; 87086; 99285-25; J3480

== ENCOUNTER 2022-12-30 05:02 | Day surgery (SDC) | payer OTHER ==
[2022-12-27 14:25] VITALS: BMI 43.4
[2022-12-30 10:52] VITALS: BP 117/68; PULSE 55; RESP 18; TEMP 97.1
== END 2022-12-30 11:00 | disposition home or self-care (01) ==
LOC: JASU-ENDO 05:02
PROVIDERS: ATTEND Internal Medicine Gastroenterology
PROC: 0DJD8ZZ Inspection of Lower Intestinal Tract, Via Natural or Artificial Opening Endoscopic (ICD-10-PCS; principal; 2022-12-30 09:30)
DX: K57.30 Diverticulosis of large intestine without perforation or abscess without bleeding (principal)
CPT/HCPCS: 81025

== ENCOUNTER 2023-02-09 06:28 | Day surgery (SDC) | payer OTHER ==
[2023-02-08 12:00] VITALS: BMI 43.5
[2023-02-09] MEDS ORDERED: MIDAZOLAM HCL 2 MG/2 ML SINGLE DOSE VIAL ONE (11:52)
[2023-02-09] MEDS ORDERED: PROPOFOL 20 ML ONE ×3 (11:52→12:37)
[2023-02-09] MEDS ORDERED: FENTANYL CITRATE/PF 50 MCG/ML VIAL ONE ×5 (11:52→13:28)
[2023-02-09] MEDS ORDERED: IBUPROFEN 400 MG TABLET (FP) PO PRN (12:15)
[2023-02-09] MEDS ORDERED: ACETAMINOPHEN 325 MG TABLET (FP) PO PRN (12:15)
[2023-02-09] MEDS ORDERED: ONDANSETRON 4 MG/2 ML VIAL ONE (12:28)
[2023-02-09] MEDS ORDERED: DEXAMETHASONE SOD PHOSPHATE 4 MG/1 ML VIAL ONE (12:28)
[2023-02-09] MEDS ORDERED: IODINE/POTASSIUM IODIDE 5%/10% 14 ML BOTTLE NR ONE (12:30)
[2023-02-09] MEDS ORDERED: FERRIC SUBSULFATE 500 ML BOTTLE TP ONE (12:30)
[2023-02-09] MEDS ORDERED: KETOROLAC TROMETHAMINE 30 MG/1 ML VIAL ONE (12:41)
[2023-02-09] MEDS ORDERED: ACETAMINOPHEN INJECTION 100 ML IVPB ONE (12:56)
[2023-02-09] MEDS ORDERED: ONDANSETRON 4 MG/2 ML VIAL IVPUSH PRN (13:01)
[2023-02-09] MEDS ORDERED: traMADol HCL 50 MG TABLET PO ONE (13:01)
[2023-02-09] MEDS ORDERED: ACETAMINOPHEN 1000 MG/100 ML BAG IVPB ONE ×2 (13:01→13:05)
[2023-02-09] MEDS ORDERED: LACTATED RINGERS SOLUTION 1,000 ML IV SCH (13:15)
[2023-02-09 14:07] VITALS: RESP 18
[2023-02-09 14:18] VITALS: TEMP 97.3
[2023-02-09 15:20] VITALS: BP 112/72; PULSE 63
== END 2023-02-09 14:45 | disposition home or self-care (01) ==
LOC: JASU-SURG 06:28
PROVIDERS: ATTEND Obstetrics & Gynecology
PROC: 0UBC7ZX Excision of Cervix, Via Natural or Artificial Opening, Diagnostic (ICD-10-PCS; principal; 2023-02-09 12:00)
DX: D06.7 Carcinoma in situ of other parts of cervix (principal)
CPT/HCPCS: 81025; 94760

== ENCOUNTER 2023-05-06 12:07 | Emergency (ER) | payer OTHER ==
[2023-05-06 12:25] VITALS: BMI 42.6
[2023-05-06 15:12] LABS: BASO % 0.4 % (0-2.0); HEMATOCRIT 38.5 % (32.4-45.2); HEMOGLOBIN 12.2 GM/dL (10.7-15.3); LYMPH % 28.1 % (8-40); MCHC 31.7 g/dl (32.0-36.0); MEAN CELL VOLUME 78.8 fl (80-96); MEAN PLT VOLUME 9.1 fl (7.5-11.1); MONO % 4.2 % (3.8-10.2); NEUT % 66.3 % (42.8-82.8); PLATELET COUNT 324 10^3/uL (134-434); RBC 4.89 M/mm3 (3.60-5.2); RDW 15.6 % (11.6-15.6)
[2023-05-06 15:30] LABS: POTASSIUM 4.2 mmol/L (3.5-5.1)
[2023-05-06 15:31] LABS: CALCIUM 9.5 mg/dL (8.5-10.1)
[2023-05-06 15:32] LABS: ALBUMIN 4.2 g/dl (3.4-5.0); BLOOD UREA NITROGEN 10.7 mg/dL (7-18)
[2023-05-06 15:35] LABS: CREATININE 0.5 mg/dL (0.55-1.3)
[2023-05-06 15:37] LABS: BILIRUBIN,TOTAL 0.7 mg/dL (0.2-1); TOT PROT 8.1 g/dl (6.4-8.2)
[2023-05-06 16:31] LABS: URINE APPEARANCE CLEAR; URINE BILIRUBIN NEGATIVE (NEGATIVE); URINE COLOR YELLOW; URINE GLUCOSE (UA) NEGATIVE (NEGATIVE); URINE KETONE TRACE (NEGATIVE); URINE LEUK ESTERASE NEGATIVE (NEGATIVE); URINE NITRITE NEGATIVE (NEGATIVE); URINE PROTEIN NEGATIVE (NEGATIVE); URINE UROBILINOGEN 0.2 mg/dL (0.2-1.0)
[2023-05-06] MEDS ORDERED: KETOROLAC TROMETHAMINE 15 MG/ML VIAL ONE (17:38)
[2023-05-06] MEDS: KETOROLAC TROMETHAMINE 15 MG/ML VIAL IM ONE (17:42)
[2023-05-06] MEDS ORDERED: METOCLOPRAMIDE HCL INJECTION 10 MG/2 ML VIAL ONE (19:35)
[2023-05-06] MEDS ORDERED: ACETAMINOPHEN INJECTION 100 ML IVPB ONE (19:36)
[2023-05-06] MEDS: SODIUM CHLORIDE 1,000 ML IV STA (19:41)
[2023-05-06] MEDS: METOCLOPRAMIDE HCL INJECTION 10 MG/2 ML VIAL IVPB ONE (19:41)
[2023-05-06] MEDS: ACETAMINOPHEN 1000 MG/100 ML BAG IVPB ONE (19:51)
[2023-05-06 20:10] VITALS: BP 114/65; PULSE 72; RESP 18; TEMP 97.9
== END 2023-05-06 21:12 | disposition left against medical advice (07) ==
LOC: JER 12:07
PROC: 3E033NZ Introduction of Analgesics, Hypnotics, Sedatives into Peripheral Vein, Percutaneous Approach (ICD-10-PCS; principal; 2023-05-06)
PROC: 3E033GC Introduction of Other Therapeutic Substance into Peripheral Vein, Percutaneous Approach (ICD-10-PCS; 2023-05-06)
PROC: 3E0337Z Introduction of Electrolytic and Water Balance Substance into Peripheral Vein, Percutaneous Approach (ICD-10-PCS; 2023-05-06)
PROC: 3E0233Z Introduction of Anti-inflammatory into Muscle, Percutaneous Approach (ICD-10-PCS; 2023-05-06)
DX: R20.2 Paresthesia of skin (principal); R53.1 Weakness; R51.9 Headache, unspecified; R20.3 Hyperesthesia; Z20.822 Contact with and (suspected) exposure to COVID-19
CPT/HCPCS: 0241U-QW; 36415; 70551-TC; 73502-TC-LT-FY; 76830-TC; 80053; 81003; 84703; 85025; 87086; 99285-25; J0131

== ENCOUNTER 2023-11-24 04:55 | Day surgery (SDC) | payer OTHER ==
[2023-11-21 11:32] VITALS: BMI 45.1
[2023-11-24] MEDS ORDERED: LIDOCAINE VISCOUS 2% ORAL/TOP 15 ML UNIT-DOSE CUP ONE (09:37)
[2023-11-24 10:14] VITALS: TEMP 98.3
[2023-11-24 10:37] VITALS: BP 101/58; PULSE 70; RESP 19
== END 2023-11-24 10:40 | disposition home or self-care (01) ==
LOC: JASU-ENDO 04:55
PROVIDERS: ATTEND Internal Medicine Gastroenterology
PROC: 0DB68ZX Excision of Stomach, Via Natural or Artificial Opening Endoscopic, Diagnostic (ICD-10-PCS; principal; 2023-11-24 11:30)
DX: R10.13 Epigastric pain (principal)
CPT/HCPCS: 81025; 88305-TC; 88342-TC

== ENCOUNTER 2024-05-30 05:15 | Day surgery (SDC) | payer OTHER ==
[2024-05-23 17:43] VITALS: BMI 45.6
[2024-05-30] MEDS ORDERED: MIDAZOLAM HCL 2 MG/2 ML SINGLE DOSE VIAL ONE (07:51)
[2024-05-30] MEDS ORDERED: PROPOFOL 20 ML ONE (07:51)
[2024-05-30] MEDS ORDERED: ACETAMINOPHEN 325 MG TABLET (FP) PO PRN (09:21)
[2024-05-30] MEDS ORDERED: IBUPROFEN 400 MG TABLET (FP) PO PRN (09:21)
[2024-05-30] MEDS ORDERED: oxyCODONE HCL 5 MG TABLET PO PRN (09:21)
[2024-05-30] MEDS ORDERED: ACETAMINOPHEN 1000 MG/100 ML BAG IVPB PRN (10:22)
[2024-05-30] MEDS ORDERED: ACETAMINOPHEN INJECTION 100 ML ONE (10:22)
[2024-05-30] MEDS: ACETAMINOPHEN 1000 MG/100 ML BAG IVPB ONE (10:25)
[2024-05-30] MEDS ORDERED: LACTATED RINGERS SOLUTION 1,000 ML IV SCH (10:30)
[2024-05-30 11:18] VITALS: RESP 16
[2024-05-30 12:07] VITALS: TEMP 98
[2024-05-30 12:29] VITALS: BP 129/85; PULSE 90
== END 2024-05-30 12:30 | disposition home or self-care (01) ==
LOC: JASU-SURG 05:15
PROVIDERS: ATTEND Obstetrics & Gynecology
PROC: 0UDB8ZX Extraction of Endometrium, Via Natural or Artificial Opening Endoscopic, Diagnostic (ICD-10-PCS; principal; 2024-05-30 09:00)
DX: N71.9 Inflammatory disease of uterus, unspecified (principal); N83.8 Other noninflammatory disorders of ovary, fallopian tube and broad ligament; R93.89 Abnormal findings on diagnostic imaging of other specified body structures
CPT/HCPCS: 81025; 88305-TC; 94760; J0131